=== PATIENT | male | born 1995 | race Caucasian/White ===

== ENCOUNTER 2016-05-18 08:06 | Inpatient (IN) | payer MEDICAID ==
[2016-05-18] MEDS ORDERED: LORazepam INJ* 2 MG/ML 1 ML VIAL ONE (08:56)
[2016-05-18] MEDS ORDERED: diPHENhydraMINE IV* 50 MG/ML 1 ml VIAL (BENADRYL) ONE (08:57)
[2016-05-18] MEDS ORDERED: Haloperidol INJ IV/IM* 5 MG/ML AMP ONE (08:57)
[2016-05-18] MEDS ORDERED: LORazepam INJ* 2 MG/ML 1 ML VIAL IM ONE (09:08)
[2016-05-18] MEDS ORDERED: diPHENhydraMINE IV* 50 MG/ML 1 ml VIAL (BENADRYL) IM ONE (09:08)
[2016-05-18] MEDS ORDERED: Haloperidol INJ IV/IM* 5 MG/ML AMP IM ONE (09:08)
[2016-05-18] MEDS ORDERED: LORazepam INJ* 2 MG/ML 1 ML VIAL IV PUSH ONE (10:23)
[2016-05-18 11:54] LABS: Hematocrit 47 % (42-52); Hemoglobin 15.1 g/dl (14.0-18.0); Mean Corpuscular HGB Conc 32 g/dl (31-36); Mean Corpuscular Hemoglobin 28 pg (27-31); Mean Corpuscular Volume 88 fL (80-94); Mean Platelet Volume 8 um3 (7.4-10.4); Red Blood Count 5.32 10^6/ul (4.0-5.4); Red Cell Distribution Width 13 % (10.5-15); White Blood Count 11.4 10^3/ul (3.5-10.8)
[2016-05-18 12:21] LABS: ALT 38 U/L (7-52); AST 30 U/L (13-39); Albumin 4.5 g/dL (3.2-5.2); Alkaline Phosphatase 61 U/L (34-104); Anion Gap 10 mmol/L (2-11); BUN/Creatinine Ratio 8.9 (8-20); Blood Urea Nitrogen 7 mg/dL (6-24); CO2 Carbon Dioxide 23 mmol/L (22-32); Calcium 9.9 mg/dL (8.6-10.3); Chloride 103 mmol/L (101-111); EGFR African American 159.2 (>60); EGFR Non-African American 123.8 (>60); Globulin 3.2 g/dL (2-4); Glucose 84 mg/dL (70-100); Potassium 3.8 mmol/L (3.5-5.0); Sodium 136 mmol/L (133-145); Total Protein 7.7 g/dL (6.4-8.9)
[2016-05-18 12:27] LABS: Acetaminophen < 15 mcg/mL; Alcohol < 10 mg/dL (<10); Salicylate < 2.50 mg/dL (<30)
[2016-05-18 12:37] LABS: TSH (Thyroid Stimulating Horm) 4.21 mcIU/mL (0.34-5.60)
--- NOTE | 2016-05-18 14:15 | PN ---
Progress Note - Progress Note Note: Psychiatry (read with reference to note by psychiatric nurse Librado Bernard) Binh oHgan is a 20 year old male who comes to the ED with report of behavioral changes since changing his anticonvulsant from Depakote (which can have beneficial mood effects) to Keppra (known to cause adverse effect of irritability). He has reportedly been unsafe and aggressive at home and needs to be held in a supportive and safe environment. In the ED he required emergency tranquilizing medication but no restraints. He is apparently non verbal. I discussed case with (ED) and Teofilo (hospitalist). I observed the patient sleeping, apparently sedated after med. administration. Patient is unable to participate in routine inpatient psychiatric programming and needs coordinated intervention from psychiatry and neurology. Behaviorally he could require restraints, these are not available on our psychiatry unit. Seclusion is but is contra-indicated as a patient with intellectual disability. Hospital care needs to be in an alternative setting - With the doctors I have recommended medical admission with consultation from neuro, psychiatry. Recommendations: A. Psychiatric medication management: 1. Abilify: I ordered 5mg dose for today. This is a low dose and ordered an increase to 10mg for Saturday, subsequently would titrate it higher. 2. Geodon: I continued outpatient dose of 20mg BID - this is also a low dose and overall, I am skeptical of the efficacy of the Abilify/Geodon combo at the lose doses reported. 3. For emergency stat treatment of violence, Haldol 5m/Ativan 2m with optional Benadryl 50mg is reasonable on a short term basis. For ongoing management beyond 24 hours if emergency meds are still needed , I would consider using Thorazine, PO (100-200mg orally) or IM (50-100mg) with Ativan PO/IM optionally; with the option to use Thorazine as an ongoing standing medication. B. Neurology intervention Dr. Manuel, the patient's neurologist, was open to the idea of taking patient off Keppra but recommended [facility] neurologist, Dr. Shah give an opinion on it. Apparently patient was on Depakote but getting blood samples to check levels was impractical or impossible. Dr. Roberto's consideration for a replacement for Keppra would be a long acting Benzodiazapine such as Clonazepam dosed twice daily, decreasing the Keppra over a period of a couple days. C. Followup - psychiatry to follow over the weekend - will hand over to Dr. Bran - I recommend neurology consultation and Social Work consultation to assist in planning aftercare Reviewed recommendations with and Teofilo
[2016-05-18] MEDS ORDERED: Haloperidol INJ IV/IM* 5 MG/ML AMP IM PRN (14:44)
[2016-05-18] MEDS ORDERED: LORazepam INJ* 2 MG/ML 1 ML VIAL IM PRN (14:45)
--- NOTE | 2016-05-18 14:55 | ED ---
[employer] Sanchez Billy scribed for Naeem Rojas MD on 05/18/16 at 0931 . Psychiatric Complaint - HPI Summary HPI Summary: Patient is a 20 year-old male with a history of autism brought to [facility] for MHE. Patient is non-verbal at baseline; as such, history was not obtained from the patient. However, his parents reported to police that the patient has been very agitated, aggressive, and violent towards himself and to others. He was seen playing with knives today, which prompted the parents to call 911 for concerns that the patient was in danger to himself and others. - History Of Current Complaint Chief Complaint: EDMentalHealth Time Seen by Provider: 05/18/16 08:10 Hx Obtained From: Family/[facility], EMS Hx From Patient Unobtainable Due To: Other - nonverbal at baseline Onset/Duration: Gradual Onset Timing: Constant Severity Initially: Moderate Severity Currently: Moderate Aggravating Factor(s): Other - unknown Alleviating Factor(s): Other - unknown Associated Signs And Symptoms: Positive: Hostile - behavior changes, aggressive Related History: Positive For: Prior Psychiatric Issues - Allergies/Home Medications Allergies/Adverse Reactions: Allergies Allergy/AdvReac Type Severity Reaction Status Date / Time No Known Allergies Allergy Verified 05/18/16 11:21 Home Medications: Home Medications ARIPiprazole TAB* [Abilify TAB*] 5 mg PO DAILY 05/18/16 [History Confirmed 12/25] Ziprasidone CAP* [Geodon CAP*] 20 mg PO BID 05/18/16 [History Confirmed 05/18/16 ] levETIRAcetam TAB* [Keppra TAB*] 500 mg PO BID 05/18/16 [History Confirmed 05/18] PMH/Surg Hx/FS Hx/Imm Hx Cardiovascular History: Denies: Hx Myocardial Infarction Neurological History: Reports: Hx Seizures Psychiatric History: Reports: Hx Autism Infectious Disease History: Denies: Traveled Outside the [place] in Last 30 Days - Family History Known Family History: Positive: Unknown - Not obtained from the patient; he is nonverbal at baseline. Review of Systems Neurological: Other - See HPI Psychological: Other - See HPI All Other Systems Reviewed And Are Negative: No - Comments Additional Review of Systems Comments: Full ROS not obtained from the patient, level 5 caveat. Physical Exam - Summary Physical Exam Summary: The patient is well-nourished in no acute distress and in no acute pain. The skin is warm and dry and skin color reflects adequate perfusion. HEENT: The head is normocephalic and atraumatic. The pupils are equal and reactive. The conjunctivae are clear and without drainage. Nares are patent and without drainage. Mouth reveals moist mucous membranes and the throat is without erythema and exudate. The external ears are intact. The ear canals are patent and without drainage. The tympanic membranes are intact. Neck is supple with full range of motion and non-tender. There are no carotid bruits. There is no neck vein distension. Respiratory: Chest is non-tender. Lungs are clear to auscultation and breath sounds are symmetrical and equal. Cardiovascular: Heart is regular rate and rhythm. There is no murmur or rub auscultated. There is no peripheral edema and pulses are symmetrical and equal. Abdomen: The abdomen is soft and non-tender. There are normal bowel sounds heard in all four quadrants and there is no organomegaly palpated. Musculoskeletal: There is no back pain noted. Extremities are non-tender with full range of motion. There is good capillary refill. There is no peripheral edema or calf tenderness elicited. Neurological: Patient is alert but not oriented. No focal neurological deficits. The patient has symmetrical motor strength in all four extremities. Psychiatric: Patient is non-verbal at baseline. Triage Information Reviewed: Yes Vital Signs On Initial Exam: Initial Vitals Resp 18 05/18/16 09:09 Vital Signs Reviewed: Yes Diagnostics - Vital Signs Vital Signs Resp 05/18/16 09:09 18 - Laboratory Lab Results: Lab Results 05/18/16 05/18/16 Range/Units 11:30 11:30 WBC 11.4 H (3.5-10.8) 10^3/ul RBC 5.32 (4.0-5.4) 10^6/ul Hgb 15.1 (14.0-18.0) g/dl Hct 47 (42-52) % MCV 88 (80-94) fL MCH 28 (27-31) pg MCHC 32 (31-36) g/dl RDW 13 (10.5-15) % Plt Count 271 (150-450) 10^3/ul MPV 8 (7.4-10.4) um3 Neut % (Auto) 70.8 (38-83) % Lymph % (Auto) 22.4 L (25-47) % Juncos % (Auto) 5.7 (1-9) % Eos % (Auto) 0.3 (0-6) % Baso % (Auto) 0.8 (0-2) % Absolute Neuts (auto) 8.1 H (1.5-7.7) 10^3/ul Absolute Lymphs (auto) 2.6 (1.0-4.8) 10^3/ul Absolute Monos (auto) 0.7 (0-0.8) 10^3/ul Absolute Eos (auto) 0 (0-0.6) 10^3/ul Absolute Basos (auto) 0.1 (0-0.2) 10^3/ul Absolute Nucleated RBC 0.01 10^3/ul Nucleated RBC % 0.1 Sodium 136 (133-145) mmol/L Potassium 3.8 (3.5-5.0) mmol/L Chloride 103 (101-111) mmol/L Carbon Dioxide 23 (22-32) mmol/L Anion Gap 10 (2-11) mmol/L BUN 7 (6-24) mg/dL Creatinine 0.79 (0.67-1.17) mg/dL Est GFR ( Amer) 159.2 (>60) Est GFR (Non-Af Amer) 123.8 (>60) BUN/Creatinine Ratio 8.9 (8-20) Glucose 84 (70-100) mg/dL Calcium 9.9 (8.6-10.3) mg/dL Total Bilirubin 1.40 H (0.2-1.0) mg/dL AST 30 (13-39) U/L ALT 38 (7-52) U/L Alkaline Phosphatase 61 (34-104) U/L Total Protein 7.7 (6.4-8.9) g/dL Albumin 4.5 (3.2-5.2) g/dL Globulin 3.2 (2-4) g/dL Albumin/Globulin Ratio 1.4 (1-3) TSH 4.21 (0.34-5.60) mcIU/mL Salicylates < 2.50 (<30) mg/dL Acetaminophen < 15 mcg/mL Serum Alcohol < 10 (<10) mg/dL Result Diagrams: 05/18/16 11:30 05/18/16 11:30 Lab Statement: Any lab studies that have been ordered have been reviewed, and results considered in the medical decision making process. Course/Dx - Course Assessment/Plan: Patient is a 20 year-old male with a history of autism brought to [facility] for MHE. Patient is non-verbal at baseline; as such, history was not obtained from the patient. However, his parents reported to police that the patient has been very agitated, aggressive, and violent towards himself and to others. He was seen playing with knives today, which prompted the parents to call 911 for concerns that the patient was in danger to himself and others. Bloodwork WNL except for WBC of 11.4 and total bilirubin 1.40. The patient was seen and examined by Dr. Posadas, who recommends that the patient be admitted to the medical team, and that he will continue to consult for the patient. The theory is that the change in behavior and aggression could be related to Keppra that he was started on in March for control of his seizures. Dr. Posadas spoke with Dr. Red and they agree to admit the patient to the medical team for further workup and management. They will also request neurological consult. At this point, the patient is resting comfortably after being sedated with B-52 and an additional 2 mg of Ativan. He is hemodynamically stable, alert, but not verbal. - Differential Dx/Clinical Impression Provider Diagnosis: Behavior concern, Agitation, Violent behavior - Physician Notifications Discussed Care Of Patient With: Dr. Posadas (psychiatry) @ 1230: recommends admission to medical team. Dr. Red (hospitalist) @ 1305: accepts admission. Discharge - Discharge Plan Condition: Stable Disposition: ADMITTED TO [facility] Referrals: Crescencio Ybarra MD [Primary Care Provider] - The documentation as recorded by the [employer] stafford Billy accurately reflects the service I personally performed and the decisions made by me, Naeem Rojas MD.
[2016-05-18] MEDS ORDERED: ARIPiprazole TAB* 5 MG PO SCH (15:00)
[2016-05-18] MEDS: Lacosamide TAB* 50 MG TAB PO SCH (20:40)
[2016-05-18] MEDS: Ziprasidone * 20 MG CAP (generic Geodon) PO SCH (20:41)
[2016-05-18] MEDS: levETIRAcetam TAB* 500 MG PO SCH (20:42)
[2016-05-18] MEDS ORDERED: levETIRAcetam TAB* 500 MG PO SCH (21:00)
--- NOTE | 2016-05-18 22:24 | HP ---
HOSPITAL MEDICINE HISTORY AND PHYSICAL: DATE OF ADMISSION: 05/18/16 PRIMARY CARE PHYSICIAN: Dr. Ybarra. ATTENDING PHYSICIAN: Dr. Ean Red *(dictation provided by Gonzalo Dubois NP ) CHIEF COMPLAINT: Agitation and unsafe behavior. HISTORY OF PRESENT ILLNESS: Mr. York is a 20-year-old male with a past medical history of autism, who is nonverbal. He also has a history of seizure disorder. He has recently had changes to his seizure medication from divalproex to Keppra. His family state that since the change that he has been more agitated and controlling in his behaviors. They note that he has been playing with knives. He has been aggressive with his family and they have been looking to arrange for greater support and a new home for the patient in an appropriate facility. The patient became agitated today and the family were fearful for their safety; they decided to bring him in to the emergency room for assistance. In the emergency room, Mr. York is nonverbal, which is his baseline. He has received Haldol and Ativan and is sitting up in the chair peacefully for the most part. There is no report of any other acute concerns. PAST MEDICAL HISTORY: 1. Autism. 2. Seizure disorder. MEDICATIONS: Outpatient are: 1. Keppra 500 mg p.o. b.i.d. 2. Abilify 5 mg p.o. daily. 3. Geodon 20 mg p.o. b.i.d. ALLERGIES: No known drug allergies. FAMILY HISTORY: Unobtainable as the family is not at the bedside. SOCIAL HISTORY: Unobtainable as the family is not at the bedside. The patient is nonverbal. REVIEW OF SYSTEMS: Unobtainable. PHYSICAL EXAMINATION GENERAL: Ms. York is sitting up in the chair. He is in no acute distress. He is calm and cooperative with my examination. VITAL SIGNS: Temperature 98.6, pulse rate 97, respiratory rate 17, O2 saturation 98% on room air, blood pressure 122/73. LUNGS: Clear to auscultation bilaterally. HEART: S1, S2. No murmurs, rubs or gallops. ABDOMEN: Soft, nontender. EXTREMITIES: No cyanosis or edema. SKIN: Intact. NEUROLOGIC: He is alert. He moves all extremities equally. He is nonverbal. LABORATORY DATA: WBC 11.4, hemoglobin 15.1, hematocrit 47, platelet count 271. Sodium 136, potassium 3.8, chloride 103, serum bicarbonate 23, BUN 7, creatinine 0.79, glucose 84. ASSESSMENT: Mr. York is a 20-year-old male with a past medical history of autism and seizure disorder who presents today at the hospital today due to unsafe agitated behavior with his family. Plans are for admission to the hospital for the following with inpatient status as I expect his length of stay to be greater than 2 days. Plan is as follows: 1. Agitated behavior. I appreciate the support from Dr. Posadas, who is providing consultation. Recommendations are the patient can increase his Abilify from 5 to 10 mg with possible subsequent higher titration. The patient is recommended to continue on his home outpatient Geodon. Finally recommendation is that the patient is agitated, he can have Haldol and Ativan intramuscularly but that Thorazine should be used assisted IM as needed if the patient continues to be agitated. In addition, the mental health evaluation spoke directly with the patient's neurologist, Dr. Manuel, who is deferring the change of seizure medication to inpatient Neurology. I plan to contact Dr. Bustos, but I have not been able to reach him yet for his recommendations. Dr. Manuel suggest that he could wean the patient off of Keppra using b.i.d. dosing of clonazepam. 2. Disposition: The patient is being followed closely by a social work and other staff in the hospital and arrangements will be made for discharge once the patient's mood and behaviors are stabilized. 3. Code status: Full code. TIME SPENT: Approximately 60 minutes were spent on the admission of this patient, more than half the time spent with him at the bedside reviewing the events leading up to this hospitalization, performing the physical examination, and reviewing the plan of care. GONZALO DUBOIS NP CC: Dr. Ybarra* [id number]/CPS #: [id number]
--- NOTE | 2016-05-19 02:07 | CONS ---
CC: Dr. Crescencio Ybarra; Dr. Izzy Manuel NEUROLOGY CONSULTATION: DATE OF CONSULT: 05/18/16 REQUESTING PHYSICIAN: Dr. Red. REASON FOR CONSULT: Recommendations for seizure medications. PRIMARY CARE PROVIDER: Dr. Crescencio Ybarra. NEUROLOGIST: Elizabeth Muñoz. HISTORY OF PRESENT ILLNESS: The patient is a 20-year-old male with history of autism who was brought to the hospital because of aggressive behavior and increased irritability. When I was asked for the consult in the afternoon, I went to the patient's room, I was able to examine the patient but no history could be obtained due to the patient being non-verbal and his parents were not around to obtain more information. I called the patient's parents and left a message and they called me back around 6 p.m. The history is obtained from my conversation with the patient's mother. Binh, as mentioned above, has history of autism; however, he was a calm and happy person with no behavioral problems until recently. About 4 years ago, some time in 2012, he started to have seizures described as episodes of staring off, followed by a generalized convulsion which usually lasted less than 1 minute and with some postictal confusion. The frequency of his seizures were initially around 1 seizure every few months. About late 2013 or early 2014 he was first started on Depakote for seizure control. His seizures did not respond very well to Depakote and he continued to have seizures every few months. Starting around August of 2015, while he was on Depakote, it was noted that the patient is more irritable than usual and change in his behavior was noted. His last seizure was in October 2015. Eventually in December, his Depakote was switched to levetiracetam in order to have less need for blood draw to monitor the level of antiepileptic medication and/or liver enzyme monitoring. In addition, the patient was on Risperdal since probably age 6-7, but it was recommended to be discontinued by his neurologist because of his history of seizures. Eventually, the Risperdal was discontinued in February 2016. Binh did not have any seizures while on levetiracetam. However, his behavior became even more aggressive and irritated since levetiracetam started. He eventually he was brought to the hospital today because of his behavior and for possibly placement in a facility. Binh, other than autism, has no other clear risk factor for epilepsy including no family history, no history of head trauma or history of meningitis , encephalitis, or febrile seizure. In terms of workup for epilepsy, per mother, he had only 1 EEG that seemingly was normal. He never had an imaging of the brain because it was hard to obtain that. Per his mother, it is extremely hard to get a blood draw from him and may be in his entire life he had not more than 2 blood draws and he needed to be sedated prior to that. PAST MEDICAL HISTORY: No significant past medical history other than autism and seizures that were mentioned above. PAST SURGICAL HISTORY: None. HOME MEDICATIONS: Include: 1. Abilify 5 mg p.o. daily. 2. Geodon 20 mg p.o. b.i.d. 3. Levetiracetam 500 mg p.o. b.i.d. ALLERGIES: No known drug allergies. FAMILY HISTORY: There is no history of seizure in the family. There is no other significant neurological disorder in the family. SOCIAL HISTORY: The patient currently lives at home and has a field services analyst. PHYSICAL EXAMINATION: Blood pressure 138/74, temperature 98.3, respiratory rate 20, pulse rate 129, O2 sat 97% on room air. The patient is calm at this point, but other than simple instructions, he does not cooperate with multistep commands so the exam is limited. He is nonverbal at his baseline. He seems in no acute distress now. Pupils are symmetric and reactive to light. He seems to be able to follow with his eyes in all directions with no clear nystagmus in lateral gaze. Face is symmetric. He is moving all his extremities, but as mentioned there is no clear cooperation from his side to complete a detailed neurological exam. His gait is narrow based and steady. Today, his labs showed a WBC of 11.4, hemoglobin 15.1, hematocrit 47, platelets 271. Sodium 136, potassium 3.8, BUN 7, creatinine 0.79, AST 30, ALT 38, alkaline phosphatase 61. TSH 4.21. Toxicology is negative. ASSESSMENT AND PLAN: The patient is a 20-year-old male with history of seizure and autism. He has been on Depakote in the past and now on levetiracetam since December or January 2016. Seems like the behavioral problems started back in August of 2015 while he was still on Depakote; however, his aggressiveness escalated after switching his seizure medication to levetiracetam. In addition, he was taken off Risperdal in February 2016. Therefore, although I think levetiracetam is a significant contributor to the patient's behavioral change, I am not sure if it is the only cause. Depakote, in general, is a mood stabilizer but there is a small percentage of patients who exhibit a paradoxical aggressive behavior on that medication. Whether the start of change in his behavior back in August 2015 was related to Depakote that escalated after switching to levetiracetam in December, is a possibility. I had a prolonged conversation (>45 minutes) with the patient's mother today regarding his medication management. At this point, I think that the levetiracetam definitely needs to be changed to another seizure medication because of his aggressiveness, which is a well-known side effect of levetiracetam. We talked about alternative options and reviewed the side effects of specifically 3 antiepileptic medications, i.e. lamotrigine, oxcarbazepine and Vimpat. The caveat is that the patient does not allow blood draws and therefore medications that are metabolized by the liver such as lamotrigine or oxcarbazepine which need a periodic check of the antiepileptic level as well as liver function or CBC will be challenging. In terms of mood stabilization, lamotrigine will be a better option, but the titration of that medication should be slow, and again blood draws will be challenging. Eventually, after taking everything into consideration, decided that Vimpat might be a better choice since it needs less monitoring of level of medication and does not need monitoring of the liver enzymes or CBC. I recommended to decrease his levetiracetam to 250 mg b.i.d., starting tonight, while starting him on Vimpat 25 mg b.i.d. for 3 days, then 50 mg b.i.d. for 1 week, then 100 mg b.i.d. for 1 week, and then 150 mg b.i.d. levetiracetam can be discontinued when he reaches the dose of 100 mg b.i.d. of Vimpat. This titration plan can be further assessed and adjusted by his primary neurologist based on the clinical response. If possible, obtaining a level after he reaches to the goal dose of Vimpat will be helpful and after that probably does not need frequent monitoring. Potential side effects such as drowsiness, dizziness, double vision was discussed. Vimpat can also cause irritability, but the rate of that is extremely low. In terms of workup, Binh needs an imaging of his brain as this was never done before. At least a CT head or preferably an MRI. However, this needs to be done probably under general anesthesia and can be pursued by his regular neurologist , hopefully at a time that his behavior is under better control. [id number]/CPS #: [id number] MTDD
[2016-05-19] MEDS: Ziprasidone * 20 MG CAP (generic Geodon) PO SCH ×2 (09:01→20:21)
[2016-05-19] MEDS: Lacosamide TAB* 50 MG TAB PO SCH ×2 (09:01→20:21)
[2016-05-19] MEDS: ARIPiprazole TAB* 5 MG PO SCH (09:01)
[2016-05-19] MEDS: levETIRAcetam TAB* 500 MG PO SCH ×2 (09:01→20:21)
--- NOTE | 2016-05-19 12:04 | PN ---
Progress Note - Progress Note SOAP: Neurology progress note Date of service 05/19/16 Subjective: No acute events overnight. The patient has been calm and no report of aggressive behavior since admission. His levetiracetam dose was decreased to 250 mg bid and Vimpat started at 25 mg bid. Objective: Vital Signs Temp Pulse Resp BP Pulse Ox 98.3 F 104 16 120/74 98 05/18/16 16:22 05/19/16 08:07 05/19/16 08:07 05/19/16 08:07 05/19/16 08:07 Current Medications Aripiprazole (Abilify Tab*) 10 mg PO DAILY [facility] Last Admin: 05/19/16 09:01 Dose: 10 mg Lacosamide (Vimpat Tab*) 25 mg PO BID [facility] Last Admin: 05/19/16 09:01 Dose: 25 mg Levetiracetam (Keppra Tab*) 250 mg PO BID [facility] Last Admin: 05/19/16 09:01 Dose: 250 mg Ziprasidone (Geodon (Generic) *) 20 mg PO BID [facility] Last Admin: 05/19/16 09:01 Dose: 20 mg No new labs The patient is currently sleeping, and due to the history of his behavior, I did not wake him up. There has been no report of clear change in his gross physical mobility. ASSESSMENT AND PLAN: The patient is a 20-year-old male with history of seizure and autism admitted for worsening of his behavior and aggressiveness. Please refer to the original consult note for the detailed discussion regarding management of his AEDs. Continue on levetiracetam to 250 mg b.i.d. and continue on Vimpat 25 mg b.i.d. for 3 days, then 50 mg b.i.d. for 1 week, then 100 mg b.i.d. for 1 week, and then 150 mg b.i.d. Levetiracetam can be discontinued when he reaches the dose of 100 mg b.i.d. of Vimpat. This titration plan can be further assessed and adjusted by his primary neurologist based on the clinical response. If possible , obtaining a level after he reaches to the goal dose of Vimpat will be helpful and after that probably does not need frequent monitoring. In terms of workup, Binh needs an imaging of his brain as this was never done before. At least a CT head or preferably an MRI. However, this needs to be done probably under general anesthesia and can be pursued by his regular neurologist, hopefully at a time that his behavior is under better control.
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
[2016-05-19] MEDS ORDERED: Haloperidol INJ IV/IM* 5 MG/ML AMP IM PRN (15:18)
[2016-05-19] MEDS ORDERED: LORazepam TAB(*) 1 MG ONE (15:25)
[2016-05-19] MEDS: LORazepam TAB(*) 1 MG PO PRN (15:26)
[2016-05-19] MEDS: Haloperidol TAB* 5 MG PO PRN (15:37)
--- NOTE | 2016-05-19 17:34 | PN ---
Subjective Date of Service: 05/19/16 Interval History: Patient non verbal but not violent with me. Objective Active Medications: Aripiprazole (Abilify Tab*) 10 mg PO DAILY [facility] Last Admin: 05/19/16 09:01 Dose: 10 mg Haloperidol (Haldol Tab*) 5 mg PO Q6H PRN PRN Reason: AGITATION Last Admin: 05/19/16 15:37 Dose: 5 mg Haloperidol Lactate (Haldol Inj Iv/Im*) 5 mg IM Q6H PRN PRN Reason: AGITATION Lacosamide (Vimpat Tab*) 25 mg PO BID [facility] Last Admin: 05/19/16 09:01 Dose: 25 mg Levetiracetam (Keppra Tab*) 250 mg PO BID [facility] Last Admin: 05/19/16 09:01 Dose: 250 mg Lorazepam (Ativan Tab(*)) 1 mg PO Q4H PRN PRN Reason: Anxiety/Agitation Last Admin: 05/19/16 15:26 Dose: 1 mg Ziprasidone (Geodon (Generic) *) 20 mg PO BID [facility] Last Admin: 05/19/16 09:01 Dose: 20 mg Vital Signs 05/18/16 05/18/16 05/19/16 18:34 20:00 08:00 Pulse Rate Respiratory 18 18 18 Rate Blood Pressure (mmHg) O2 Sat by Pulse Oximetry 05/19/16 05/19/16 08:07 15:26 Pulse Rate 104 Respiratory 16 18 Rate Blood Pressure 120/74 (mmHg) O2 Sat by Pulse 98 Oximetry Oxygen Devices in Use Now: None Appearance: WD/WN young man walking but in NAD Eyes: No Scleral Icterus Ears/Nose/Mouth/Throat: Clear Oropharnyx Neck: No Thyroid Enlargement, Masses Respiratory: Clear to Auscultation Cardiovascular: - - S1S2 alondra Abdominal: NL Sounds; No Tenderness; No Distention, No Hepatosplenomegaly Lymphatic: No Cervical Adenopathy Extremities: No Edema, No Clubbing, Cyanosis Skin: No Nodules or Sclerosis Neurological: - - Alert but cannot tell if oriented. Result Diagrams: 05/18/16 11:30 05/18/16 11:30 Additional Lab and Data: Lab Results 05/18/16 05/18/16 Range/Units 11:30 11:30 WBC 11.4 H (3.5-10.8) 10^3/ul RBC 5.32 (4.0-5.4) 10^6/ul Hgb 15.1 (14.0-18.0) g/dl Hct 47 (42-52) % MCV 88 (80-94) fL MCH 28 (27-31) pg MCHC 32 (31-36) g/dl RDW 13 (10.5-15) % Plt Count 271 (150-450) 10^3/ul MPV 8 (7.4-10.4) um3 Neut % (Auto) 70.8 (38-83) % Lymph % (Auto) 22.4 L (25-47) % [place] % (Auto) 5.7 (1-9) % Eos % (Auto) 0.3 (0-6) % Baso % (Auto) 0.8 (0-2) % Absolute Neuts (auto) 8.1 H (1.5-7.7) 10^3/ul Absolute Lymphs (auto) 2.6 (1.0-4.8) 10^3/ul Absolute Monos (auto) 0.7 (0-0.8) 10^3/ul Absolute Eos (auto) 0 (0-0.6) 10^3/ul Absolute Basos (auto) 0.1 (0-0.2) 10^3/ul Absolute Nucleated RBC 0.01 10^3/ul Nucleated RBC % 0.1 Sodium 136 (133-145) mmol/L Potassium 3.8 (3.5-5.0) mmol/L Chloride 103 (101-111) mmol/L Carbon Dioxide 23 (22-32) mmol/L Anion Gap 10 (2-11) mmol/L BUN 7 (6-24) mg/dL Creatinine 0.79 (0.67-1.17) mg/dL Est GFR ( Amer) 159.2 (>60) Est GFR (Non-Af Amer) 123.8 (>60) BUN/Creatinine Ratio 8.9 (8-20) Glucose 84 (70-100) mg/dL Calcium 9.9 (8.6-10.3) mg/dL Total Bilirubin 1.40 H (0.2-1.0) mg/dL AST 30 (13-39) U/L ALT 38 (7-52) U/L Alkaline Phosphatase 61 (34-104) U/L Total Protein 7.7 (6.4-8.9) g/dL Albumin 4.5 (3.2-5.2) g/dL Globulin 3.2 (2-4) g/dL Albumin/Globulin Ratio 1.4 (1-3) TSH 4.21 (0.34-5.60) mcIU/mL Salicylates < 2.50 (<30) mg/dL Acetaminophen < 15 mcg/mL Serum Alcohol < 10 (<10) mg/dL Assess/Plan/Problems-Billing Assessment: Patient is a 20 year old with a history of seizure and autism who has been displaying more violent behavior since being placed on Keppra, - Patient Problems (1) Seizure disorder Current Visit: Yes Status: Acute Code(s): G40.909 - EPILEPSY, UNSP, NOT INTRACTABLE, WITHOUT STATUS EPILEPTICUS SNOMED Code(s): 878596799 Comment: Appreciate neurology's input and patient to be weened off Keppra and placed on Vimpat. Not clear if violent tendencies and agitation necessarily coincided with the initiation of Keppra but it is known to be a side effect of this medication. (2) Autism Current Visit: Yes Status: Acute Code(s): F84.0 - AUTISTIC DISORDER SNOMED Code(s): 631996493 Comment: Appreciate Psychiatry's input and have adjusted his abilify and will use Haldol, Ativan prn. (3) Full code status Current Visit: Yes Status: Acute Code(s): Z78.9 - OTHER SPECIFIED HEALTH STATUS SNOMED Code(s): 389437386
[2016-05-20] MEDS: Haloperidol TAB* 5 MG PO PRN ×2 (06:52→15:16)
[2016-05-20] MEDS: Lacosamide TAB* 50 MG TAB PO SCH ×2 (08:08→21:06)
[2016-05-20] MEDS: ARIPiprazole TAB* 5 MG PO SCH (08:08)
[2016-05-20] MEDS: levETIRAcetam TAB* 500 MG PO SCH ×2 (08:09→21:06)
[2016-05-20] MEDS: Ziprasidone * 20 MG CAP (generic Geodon) PO SCH ×2 (08:09→21:06)
[2016-05-20] MEDS: LORazepam TAB(*) 1 MG PO PRN ×2 (15:11→21:06)
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
[2016-05-21] MEDS: ARIPiprazole TAB* 5 MG PO SCH (09:12)
[2016-05-21] MEDS: Lacosamide TAB* 50 MG TAB PO SCH ×2 (09:12→19:35)
[2016-05-21] MEDS: levETIRAcetam TAB* 500 MG PO SCH ×2 (09:13→19:34)
[2016-05-21] MEDS: Ziprasidone * 20 MG CAP (generic Geodon) PO SCH ×2 (09:13→19:35)
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
[2016-05-21] MEDS: Haloperidol TAB* 5 MG PO PRN (18:34)
[2016-05-21] MEDS: LORazepam TAB(*) 1 MG PO PRN (19:01)
[2016-05-22] MEDS: Haloperidol TAB* 5 MG PO PRN ×2 (07:08→17:19)
[2016-05-22] MEDS: ARIPiprazole TAB* 5 MG PO SCH (08:33)
[2016-05-22] MEDS: Ziprasidone * 20 MG CAP (generic Geodon) PO SCH ×2 (08:34→21:06)
[2016-05-22] MEDS: levETIRAcetam TAB* 500 MG PO SCH ×2 (08:34→21:06)
[2016-05-22] MEDS: Lacosamide TAB* 50 MG TAB PO SCH ×2 (08:34→21:13)
[2016-05-22] MEDS: LORazepam TAB(*) 1 MG PO PRN ×2 (09:26→18:41)
--- NOTE | 2016-05-22 15:17 | PN ---
Subjective Date of Service: 05/22/16 Interval History: pt appears to be much calmer in the past 24H. Currently not interested win talking with me. no complaints Objective Active Medications: Aripiprazole (Abilify Tab*) 10 mg PO DAILY [facility] Last Admin: 05/22/16 08:33 Dose: 10 mg Haloperidol (Haldol Tab*) 5 mg PO Q6H PRN PRN Reason: AGITATION Last Admin: 05/22/16 07:08 Dose: 5 mg Haloperidol Lactate (Haldol Inj Iv/Im*) 5 mg IM Q6H PRN PRN Reason: AGITATION Lacosamide (Vimpat Tab*) 50 mg PO BID [facility] Last Admin: 05/22/16 08:34 Dose: 50 mg Levetiracetam (Keppra Tab*) 250 mg PO BID [facility] Last Admin: 05/22/16 08:34 Dose: 250 mg Lorazepam (Ativan Tab(*)) 1 mg PO Q4H PRN PRN Reason: Anxiety/Agitation Last Admin: 05/22/16 09:26 Dose: 1 mg Ziprasidone (Geodon (Generic) *) 20 mg PO BID [facility] Last Admin: 05/22/16 08:34 Dose: 20 mg Vital Signs 05/21/16 05/21/16 05/21/16 19:01 20:00 21:01 Respiratory 18 18 18 Rate 05/22/16 05/22/16 05/22/16 08:00 09:26 11:26 Respiratory 16 16 16 Rate Oxygen Devices in Use Now: None Appearance: 20 yo M, lying on bed in NAd, when asked if he wants to talk, he shook his head " no". Eyes: No Scleral Icterus, PERRLA Ears/Nose/Mouth/Throat: NL Teeth, Lips, Gums, Mucous Membranes Moist Neck: NL Appearance and Movements; NL JVP, Trachea Midline Respiratory: Symmetrical Chest Expansion and Respiratory Effort Cardiovascular: RRR Abdominal: NL Sounds; No Tenderness; No Distention Extremities: No Edema, No Clubbing, Cyanosis Neurological: NL Muscle Strength and Tone Result Diagrams: 05/18/16 11:30 05/18/16 11:30 Additional Lab and Data: Lab Results 05/18/16 05/18/16 Range/Units 11:30 11:30 WBC 11.4 H (3.5-10.8) 10^3/ul RBC 5.32 (4.0-5.4) 10^6/ul Hgb 15.1 (14.0-18.0) g/dl Hct 47 (42-52) % MCV 88 (80-94) fL MCH 28 (27-31) pg MCHC 32 (31-36) g/dl RDW 13 (10.5-15) % Plt Count 271 (150-450) 10^3/ul MPV 8 (7.4-10.4) um3 Neut % (Auto) 70.8 (38-83) % Lymph % (Auto) 22.4 L (25-47) % [place] % (Auto) 5.7 (1-9) % Eos % (Auto) 0.3 (0-6) % Baso % (Auto) 0.8 (0-2) % Absolute Neuts (auto) 8.1 H (1.5-7.7) 10^3/ul Absolute Lymphs (auto) 2.6 (1.0-4.8) 10^3/ul Absolute Monos (auto) 0.7 (0-0.8) 10^3/ul Absolute Eos (auto) 0 (0-0.6) 10^3/ul Absolute Basos (auto) 0.1 (0-0.2) 10^3/ul Absolute Nucleated RBC 0.01 10^3/ul Nucleated RBC % 0.1 Sodium 136 (133-145) mmol/L Potassium 3.8 (3.5-5.0) mmol/L Chloride 103 (101-111) mmol/L Carbon Dioxide 23 (22-32) mmol/L Anion Gap 10 (2-11) mmol/L BUN 7 (6-24) mg/dL Creatinine 0.79 (0.67-1.17) mg/dL Est GFR ( Amer) 159.2 (>60) Est GFR (Non-Af Amer) 123.8 (>60) BUN/Creatinine Ratio 8.9 (8-20) Glucose 84 (70-100) mg/dL Calcium 9.9 (8.6-10.3) mg/dL Total Bilirubin 1.40 H (0.2-1.0) mg/dL AST 30 (13-39) U/L ALT 38 (7-52) U/L Alkaline Phosphatase 61 (34-104) U/L Total Protein 7.7 (6.4-8.9) g/dL Albumin 4.5 (3.2-5.2) g/dL Globulin 3.2 (2-4) g/dL Albumin/Globulin Ratio 1.4 (1-3) TSH 4.21 (0.34-5.60) mcIU/mL Salicylates < 2.50 (<30) mg/dL Acetaminophen < 15 mcg/mL Serum Alcohol < 10 (<10) mg/dL Assess/Plan/Problems-Billing Assessment: Patient is a 20 year old with a history of seizure and autism who has been displaying more violent behavior since being placed on Keppra, - Patient Problems (1) Autism Comment: Appreciate Psychiatry's input bret bonilla and haldol prn appears close to his baseline. Possible d/c home tomorrow, (2) Seizure disorder Comment: Appreciate neurology's input and patient is being weaned off Keppra. cont Keppra at decreased dose Vimpat started and being titrated up to Vimpat 50 BID 05/22/16 for 1 week then follow titration schedule in neurology notes Suspect violent behavior changes in setting of keppra (3) DVT prophylaxis Comment: low risk ambulating (4) Full code status Status and Disposition: inpatient
[2016-05-23] MEDS: LORazepam TAB(*) 1 MG PO PRN ×2 (03:58→17:09)
[2016-05-23] MEDS: Haloperidol TAB* 5 MG PO PRN (03:58)
[2016-05-23] MEDS: levETIRAcetam TAB* 500 MG PO SCH ×2 (09:37→20:29)
[2016-05-23] MEDS: Lacosamide TAB* 50 MG TAB PO SCH ×2 (09:38→20:29)
[2016-05-23] MEDS: ARIPiprazole TAB* 5 MG PO SCH (09:38)
[2016-05-23] MEDS: Ziprasidone * 20 MG CAP (generic Geodon) PO SCH ×2 (09:39→20:29)
--- NOTE | 2016-05-23 19:33 | PN ---
Progress Note - Progress Note Note: Time spent on discharge 45 minutes.
--- NOTE | 2016-05-23 21:20 | DCNOTE ---
Subjective Date of Service: 05/23/16 Interval History: Patient offers no c/o. Not clear if he could make his needs known. Objective Active Medications: Aripiprazole (Abilify Tab*) 10 mg PO DAILY [facility] Last Admin: 05/23/16 09:38 Dose: 10 mg Haloperidol (Haldol Tab*) 5 mg PO Q6H PRN PRN Reason: AGITATION Last Admin: 05/23/16 03:58 Dose: 5 mg Haloperidol Lactate (Haldol Inj Iv/Im*) 5 mg IM Q6H PRN PRN Reason: AGITATION Lacosamide (Vimpat Tab*) 50 mg PO BID [facility] Last Admin: 05/23/16 20:29 Dose: 50 mg Levetiracetam (Keppra Tab*) 250 mg PO BID [facility] Last Admin: 05/23/16 20:29 Dose: 250 mg Lorazepam (Ativan Tab(*)) 1 mg PO Q4H PRN PRN Reason: Anxiety/Agitation Last Admin: 05/23/16 17:09 Dose: 1 mg Ziprasidone (Geodon (Generic) *) 20 mg PO BID [facility] Last Admin: 05/23/16 20:29 Dose: 20 mg Vital Signs 05/22/16 05/23/16 05/23/16 23:51 03:58 05:58 Pulse Rate 113 Respiratory 20 20 Rate Blood Pressure 131/65 (mmHg) O2 Sat by Pulse 96 Oximetry 05/23/16 05/23/16 05/23/16 07:51 08:00 15:18 Pulse Rate 123 145 Respiratory 18 16 Rate Blood Pressure 140/67 131/71 (mmHg) O2 Sat by Pulse 96 97 Oximetry 05/23/16 05/23/16 05/23/16 15:30 17:09 19:09 Pulse Rate 111 Respiratory 16 16 Rate Blood Pressure (mmHg) O2 Sat by Pulse Oximetry Oxygen Devices in Use Now: None Appearance: Alert, partly up in bed. In good spirits and sociable, offered to shake hands and high-five me. Looks comfortable. Eyes: No Scleral Icterus Neck: NL Appearance and Movements; NL JVP, No Thyroid Enlargement, Masses Respiratory: Symmetrical Chest Expansion and Respiratory Effort, Clear to Auscultation, Clear to Percussion Cardiovascular: NL Sounds; No Murmurs; No JVD, RRR, No Edema, - Skin: No Rash or Ulcers, No Nodules or Sclerosis, - Neurological: NL Sensation - Non-verbal. Good eye contact. No tremors. Moves all limbs. Result Diagrams: 05/18/16 11:30 05/18/16 11:30 Additional Lab and Data: Lab Results 05/18/16 05/18/16 Range/Units 11:30 11:30 WBC 11.4 H (3.5-10.8) 10^3/ul RBC 5.32 (4.0-5.4) 10^6/ul Hgb 15.1 (14.0-18.0) g/dl Hct 47 (42-52) % MCV 88 (80-94) fL MCH 28 (27-31) pg MCHC 32 (31-36) g/dl RDW 13 (10.5-15) % Plt Count 271 (150-450) 10^3/ul MPV 8 (7.4-10.4) um3 Neut % (Auto) 70.8 (38-83) % Lymph % (Auto) 22.4 L (25-47) % [place] % (Auto) 5.7 (1-9) % Eos % (Auto) 0.3 (0-6) % Baso % (Auto) 0.8 (0-2) % Absolute Neuts (auto) 8.1 H (1.5-7.7) 10^3/ul Absolute Lymphs (auto) 2.6 (1.0-4.8) 10^3/ul Absolute Monos (auto) 0.7 (0-0.8) 10^3/ul Absolute Eos (auto) 0 (0-0.6) 10^3/ul Absolute Basos (auto) 0.1 (0-0.2) 10^3/ul Absolute Nucleated RBC 0.01 10^3/ul Nucleated RBC % 0.1 Sodium 136 (133-145) mmol/L Potassium 3.8 (3.5-5.0) mmol/L Chloride 103 (101-111) mmol/L Carbon Dioxide 23 (22-32) mmol/L Anion Gap 10 (2-11) mmol/L BUN 7 (6-24) mg/dL Creatinine 0.79 (0.67-1.17) mg/dL Est GFR ( Amer) 159.2 (>60) Est GFR (Non-Af Amer) 123.8 (>60) BUN/Creatinine Ratio 8.9 (8-20) Glucose 84 (70-100) mg/dL Calcium 9.9 (8.6-10.3) mg/dL Total Bilirubin 1.40 H (0.2-1.0) mg/dL AST 30 (13-39) U/L ALT 38 (7-52) U/L Alkaline Phosphatase 61 (34-104) U/L Total Protein 7.7 (6.4-8.9) g/dL Albumin 4.5 (3.2-5.2) g/dL Globulin 3.2 (2-4) g/dL Albumin/Globulin Ratio 1.4 (1-3) TSH 4.21 (0.34-5.60) mcIU/mL Salicylates < 2.50 (<30) mg/dL Acetaminophen < 15 mcg/mL Serum Alcohol < 10 (<10) mg/dL Assess/Plan/Problems-Billing Assessment: Patient is a 20 year old with a history of seizure and autism who has been displaying more violent behavior since being placed on Keppra, - Patient Problems (1) Autism Current Visit: Yes Status: Acute Code(s): F84.0 - AUTISTIC DISORDER SNOMED Code(s): 977171598 Comment: Appreciate Psychiatry's input. Continue bret bonilla. Plan d/c home 05/24. I spoke with his mother on the phone about discharge plans and meds. (2) Seizure disorder Current Visit: Yes Status: Acute Code(s): G40.909 - EPILEPSY, UNSP, NOT INTRACTABLE, WITHOUT STATUS EPILEPTICUS SNOMED Code(s): 245347935 Comment: Appreciate neurology's input and patient is being weaned off Keppra. He seems to have improved with decrease in Keppra dose, last dose 05/28. Vimpat started and being titrated up to Vimpat 50 BID 05/22/16 for 1 week then follow titration schedule in neurology notes. Status and Disposition: inpatient Plan discharge 05/24/16. Fup Dr. Ybarra
[2016-05-24 07:57] VITALS: BP 102/61
[2016-05-24] MEDS: ARIPiprazole TAB* 5 MG PO SCH (08:21)
[2016-05-24] MEDS: Lacosamide TAB* 50 MG TAB PO SCH (08:22)
[2016-05-24] MEDS: Ziprasidone * 20 MG CAP (generic Geodon) PO SCH (08:22)
[2016-05-24] MEDS: levETIRAcetam TAB* 500 MG PO SCH (08:22)
--- NOTE | 2016-05-25 03:57 | DS ---
DATE OF DISCHARGE: 05/24/16 HISTORY: This 20-year-old man was admitted for agitation and unsafe behavior. He has a diagnosis of autism and is nonverbal as well as a seizure disorder. Recently, his seizure was changed from divalproex to levetiracetam. Since that change, he became more agitated and dangerous at home. His family called 911 to have the ambulance crew bring him to the emergency room. The patient was seen in consultation by the neurologist. He is being gradually switched from levetiracetam to lacosamide. During the hospital stay, his behavior improved significantly suggesting that the change was due to the levetiracetam. He also had aripiprazole added to his medical regimen which may provide additional benefit. FINAL DIAGNOSES: 1. Autism. 2. Seizure disorder. DISCHARGE MEDICATIONS: 1. Lacosamide to titrate up to 50 mg 3 tablets b.i.d., 11 days after discharge. 2. Aripiprazole 10 mg daily. 3. Levetiracetam will be 250 mg b.i.d. for 4 days only, then stop. 4. Haloperidol 5 mg b.i.d. p.r.n. agitation. 5. Ziprasidone 20 mg daily. [id number]/[facility] #: [id number] [facility] CENTERLucero
== END 2016-05-24 11:55 | disposition home or self-care (01) | DRG 760 ==
LOC: ED 08:06 → MED 13:26
PROVIDERS: ADMIT Internal Medicine; ATTEND Internal Medicine
DX: R45.1 Restlessness and agitation (principal); G40.909 Epilepsy, unspecified, not intractable, without status epilepticus; F84.0 Autistic disorder; T42.6X5A Adverse effect of other antiepileptic and sedative-hypnotic drugs, initial encounter; Y92.9 Unspecified place or not applicable; F89 Unspecified disorder of psychological development
CPT/HCPCS: 36415; 80053; 80320; 80329; 84443; 85025; A9270-GY; G0480; J1200; J1630; J2060

== ENCOUNTER 2016-06-06 16:53 | Emergency (ER) | payer MEDICAID ==
[2016-06-06 17:10] VITALS: BP 130/67
--- NOTE | 2016-06-06 18:00 | UC ---
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 Onset/Duration: Gradual Onset Skin Exposure Onset/Duration: Days Ago Timing: Constant Onset Severity: Mild Current Severity: Mild Pain Scale Used: does not appear to be in pain Location: Face - worse/also involves scalp and trunk Character: Pruritus, Raised Aggravating: Nothing Alleviating: Nothing Associated Signs & Symptoms: Positive: Fever, Rash - Allergy/Home Medications Allergies/Adverse Reactions: Allergies Allergy/AdvReac Type Severity Reaction Status Date / Time No Known Allergies Allergy Verified 06/06/16 17:10 Home Medications: Home Medications Acetaminophen 1,000 mg PO PRN 06/06/16 [History] Review of Systems Constitutional: Fever Skin: Rash Eyes: Negative ENT: Negative Respiratory: Negative Cardiovascular: Negative Gastrointestinal: Negative Genitourinary: Negative Motor: Negative Neurovascular: Negative Musculoskeletal: Negative Neurological: Negative Psychological: Negative All Other Systems Reviewed And Are Negative: Yes PMH/Surg Hx/FS Hx/Imm Hx Previously Healthy: Yes Cardiovascular History Of: Denies: Myocardial Infarction Neurological History Of: Reports: Seizures - Surgical History Surgical History: None - Family History Known Family History: Positive: Unknown - Not obtained from the patient; he is nonverbal at baseline., Hypertension - Social History Alcohol Use: None Substance Use Type: None Smoking Status (MU): Never Smoked Tobacco - Immunization History Most Recent Influenza Vaccination: unk Most Recent Tetanus Shot: unk Most Recent Pneumonia Vaccination: unk Physical Exam Triage Information Reviewed: Yes Appearance: Well-Appearing, No Pain Distress, Well-Nourished Vital Signs: Initial Vital Signs Temp 98.4 F 06/06/16 17:03 Pulse 108 06/06/16 17:03 Resp 20 06/06/16 17:03 BP 130/67 06/06/16 17:03 Pulse Ox 98 06/06/16 17:03 Vital Signs Reviewed: Yes Eyes: Positive: Conjunctiva Clear ENT: Positive: Hearing grossly normal, TMs normal. Negative: Nasal congestion, Nasal drainage Neck: Positive: Supple, Nontender, No Lymphadenopathy Respiratory: Positive: Chest non-tender, Lungs clear, Normal breath sounds Cardiovascular: Positive: RRR, No Murmur Musculoskeletal: Positive: ROM Intact, No Edema Neurological: Positive: Alert Psychological Exam: Normal - verbal, pacing, difficult exam, Other Skin: Positive: rashes, Other - vesicular/some scabbed Course/Dx - Course Course Of Treatment: Advise mom to contact his neurologist re rashes from his antiseizure med. attempted to swab a lesion/pt was not very cooperative, unsure if specimen was adequate - Diagnoses Provider Diagnoses: rash of uncertain cause. suspicious for chicken pox Discharge - Discharge Plan Condition: Stable Disposition: HOME Prescriptions: Acyclovir TAB* [Zovirax TAB*] 800 mg PO QID #40 tab Patient Education Materials: Chickenpox (ED) Referrals: Crescencio Ybarra MD [Primary Care Provider] - If Needed Additional Instructions: I suspect chicken pox I suggest you contact his MD in AM as I am not familiar with the possible drug eruptions from VIMPAT tylenol as needed for fever recheck for new or worsening symptoms
== END 2016-06-06 18:13 | disposition home or self-care (01) ==
LOC: UCEAST 16:53
DX: R21 Rash and other nonspecific skin eruption (principal); R50.9 Fever, unspecified
CPT/HCPCS: 99212; G0463

== ENCOUNTER 2016-12-14 05:54 | Day surgery (SDC) | payer MEDICAID ==
[~2016-12-14 05:54] MED LIST: Buffered Lidocaine 0.9% SYRIN* 5 ML/SYR SYRINGE ONE; Famotidine IV* 10 MG/ML 2 ML (20 mg) ONE
[2016-12-14] MEDS ORDERED: Midazolam* 1 MG/ML 5 ML VIAL (5 MG) PO ONE (06:06)
[2016-12-14] MEDS ORDERED: Acetaminophen ADULT LIQ* 650 MG/20.3 ML UDC PO ONE (06:06)
[2016-12-14] MEDS ORDERED: Acetaminophen ADULT LIQ* 650 MG/20.3 ML UDC ONE ×2 (06:09)
[2016-12-14] MEDS ORDERED: DiMENhydriNATE IV* 50 MG/ML VIAL IV PUSH PRN (06:09)
[2016-12-14] MEDS ORDERED: Midazolam concentrated* 5 MG/ML 1 ml VIAL ONE ×2 (06:11)
[2016-12-14] MEDS ORDERED: Gadoteridol* (CONTRAST) 279.3 MG/ML 10 ML IV ONE (06:12)
[2016-12-14] MEDS ORDERED: Ondansetron INJ* 2 MG/ML VIAL ONE ×2 (06:28)
[2016-12-14] MEDS ORDERED: Midazolam* 1 MG/ML 10 ML VIAL (10 MG) ONE ×3 (06:28)
[2016-12-14] MEDS ORDERED: Propofol* 10 MG/ML 20 ML BTL IV PUSH ONE ×2 (06:28)
[2016-12-14] MEDS ORDERED: Lidocaine 2% PF * 5 ML VIAL ONE ×2 (06:28)
[2016-12-14] MEDS ORDERED: KETAMINE HCL* 50 MG/ML 10 ML VIAL ONE ×2 (06:30)
[2016-12-14] MEDS: Famotidine IV* 10 MG/ML 2 ML (20 mg) IV ONE (06:56)
[2016-12-14 07:18] LABS: Hematocrit 44 % (42-52); Hemoglobin 14.8 g/dl (14.0-18.0); Mean Corpuscular HGB Conc 34 g/dl (31-36); Mean Corpuscular Hemoglobin 29 pg (27-31); Mean Corpuscular Volume 87 fL (80-94); Mean Platelet Volume 8 um3 (7.4-10.4); Red Blood Count 5.06 10^6/ul (4.0-5.4); Red Cell Distribution Width 14 % (10.5-15); White Blood Count 7.7 10^3/ul (3.5-10.8)
[2016-12-14 07:47] LABS: Albumin 4.4 g/dL (3.2-5.2); BUN/Creatinine Ratio 7.8 (8-20); Calcium 9.4 mg/dL (8.6-10.3); EGFR African American 162.5 (>60); EGFR Non-African American 126.3 (>60); Globulin 2.6 g/dL (2-4); Potassium 4.2 mmol/L (3.5-5.0); Total Bilirubin 1.1 mg/dL (0.2-1.0)
[2016-12-14 08:23] VITALS: BP 131/86
--- NOTE | 2016-12-14 09:17 | RAD ---
HISTORY: Epilepsy COMPARISONS: None TECHNIQUE: The following sequences were obtained of the head: Sagittal T1-weighted images, axial T2-weighted images, axial FLAIR images, axial susceptibility weighted images, axial T1-weighted images, coronal T1, T2 and FLAIR images through the mesial temporal lobes. Additionally, axial diffusion-weighted images were obtained with calculated apparent diffusion coefficients. Additionally, sagittal and axial T1 weighted images with thin section coronal T1-weighted images through the mesial temporal lobes were obtained after contrast enhancement with a gadolinium-based intravenous contrast agent. FINDINGS: HEMORRHAGE/INFARCT: There is no hemorrhage or acute infarct. MASSES/SHIFT: There is no mass or shift. EXTRA-AXIAL SPACES/MENINGES: There are no extra-axial fluid collections. SULCI AND VENTRICLES: The sulci and ventricles are normal in size and position for the patient's stated age. CEREBRUM: There is no appreciable cortical dysplasia or heterotopia. There is asymmetry in the size of the medial temporal lobes, mildly smaller on the right than on the left, with loss of the architectural definition of the right basal temporal lobe BRAINSTEM: There are no focal parenchymal abnormalities. CEREBELLUM: There are no focal parenchymal abnormalities. The cerebellar tonsils are normal in size and position. SELLA: The sella is normal. PINEAL: The pineal region is clear. CP ANGLE/TEMPORAL BONES: The labyrinthine structures are grossly normal. VESSELS: Normal flow-voids are noted within the visualized vertebral vasculature. DIFFUSION ABNORMALITIES: There are no diffusion abnormalities. PARANASAL SINUSES/MASTOIDS: The paranasal sinuses are clear. ORBITS: The orbits are unremarkable. BONES AND SOFT TISSUE: No bone or soft tissue abnormalities are noted. OTHER: There is no abnormal enhancement. 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 RECOMMEND CORRELATION WITH EEG FINDINGS.
== END 2016-12-14 09:02 | disposition home or self-care (01) ==
LOC: OR 05:54
PROVIDERS: ATTEND Psychiatry & Neurology Neurology
DX: G40.909 Epilepsy, unspecified, not intractable, without status epilepticus (principal); F84.0 Autistic disorder
CPT/HCPCS: 36415; 70553; 80053; 85025; A9270-GY; A9579; J2250; J2405; J2704

== ENCOUNTER 2017-08-08 19:26 | Emergency (ER) | payer MEDICAID ==
[2017-08-08 19:45] VITALS: BP 121/92
--- NOTE | 2017-08-08 20:44 | ED ---
Nicho Sanchez Tiffany, scribed for Bryce Perez MD on 08/08/17 at 2017 . Neurological HPI - HPI Summary HPI Summary: 21 year old M ERROL to [facility] presents s/p seizure at 18:30 today. Pt is not actively seizing upon evaluation. Hx seizure since 2011. Pt has hx autism, is non-verbal at baseline, so pt's mother delivers HPI. Pt took 150 BID Vimpat 10 minutes before seizure today. Mother states that pt's seizure was worse today than in the past. She denies recent dosage change, recent illness, fever, urinary symptoms. Pt's last seizure was in May 2017. Pt's neurologist, Dr. Izzy Manuel in [place], did not increase dosage after May 2017 seizure. Per EMS, BG 80 en route. 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, EMS Onset/Duration: Started hours ago - 18:30 today, Resolved Associated Signs and Symptoms: Positive: Negative - recent dosage change, recent illness, fever, urinary symptoms - Additional Pertinent History Primary Care Physician: [id number] - Allergy/Home Medications Allergies/Adverse Reactions: Allergies Allergy/AdvReac Type Severity Reaction Status Date / Time No Known Allergies Allergy Verified 12/14/16 06:03 PMH/Surg Hx/FS Hx/Imm Hx Previously Healthy: No Endocrine/Hematology History: Denies: Hx Diabetes Cardiovascular History: Denies: Hx Hypertension, Hx Myocardial Infarction, Hx Pacemaker/ICD History: Denies: Hx Renal Disease Sensory History: Denies: Hx Hearing Aid Neurological History: Reports: Hx Seizures - epilepsy, Other Neuro Impairments/ Disorders - non-verbal autism Psychiatric History: Reports: Hx Anxiety, Hx Autism - non-verbal, Hx of Violent Episodes Against Others - possible reaction to Keppra, Other Psychiatric Issues/ Disorders - autism Denies: Hx Panic Disorder - Surgical History Surgery Procedure, Year, and Place: pt never had surgery Hx Anesthesia Reactions: No - never had surgery Infectious Disease History: No Infectious Disease History: Denies: Traveled Outside the [place] in Last 30 Days - Family History Known Family History: Positive: Hypertension - Social History Alcohol Use: None Hx Substance Use: No Substance Use Type: Reports: None Hx Tobacco Use: No Smoking Status (MU): Never Smoked Tobacco Review of Systems Positive: Other - NEGATIVE: recent dosage change, recent illness. Negative: Fever Positive: other - NEGATIVE: urinary symptoms Neurological: Other - seizure at 18:30 today. Pt is not actively seizing upon evaluation All Other Systems Reviewed And Are Negative: Yes Physical Exam - Summary Physical Exam Summary: VITAL SIGNS: Reviewed. GENERAL: Patient is a well-developed and nourished male who is lying comfortable in the stretcher. Patient is not in any acute respiratory distress. HEAD AND FACE: No signs of trauma. No ecchymosis, hematomas or skull depressions. No sinus tenderness. EYES: PERRLA, EOMI x 2, No injected conjunctiva, no nystagmus. EARS: Hearing grossly intact. Ear canals and tympanic membranes are within normal limits. MOUTH: Oropharynx within normal limits. NECK: Supple, trachea is midline, no adenopathy, no JVD, no carotid bruit, no c- spine tenderness, neck with full ROM. CHEST: Symmetric, no tenderness at palpation LUNGS: Clear to auscultation bilaterally. No wheezing or crackles. CVS: Regular rate and rhythm, S1 and S2 present, no murmurs or gallops appreciated. ABDOMEN: Soft, non-tender. No signs of distention. No rebound no guarding, and no masses palpated. Bowel sounds are normal. EXTREMITIES: FROM in all major joints, no edema, no cyanosis or clubbing. NEURO: Alert and oriented x 3. No acute neurological deficits. Patient is non- verbal at baseline. He is alert upon evaluation. SKIN: Dry and warm Triage Information Reviewed: Yes Vital Signs On Initial Exam: Initial Vitals Temp Pulse Resp BP Pulse Ox 98.3 F 104 18 121/92 96 08/08/17 19:43 08/08/17 19:43 08/08/17 19:43 08/08/17 19:43 08/08/17 19:43 Vital Signs Reviewed: Yes Diagnostics - Vital Signs Vital Signs Temp Pulse Resp BP Pulse Ox 08/08/17 19:43 98.3 F 104 18 121/92 96 - Laboratory Lab Statement: Any lab studies that have been ordered have been reviewed, and results considered in the medical decision making process. Re-Evaluation - Re-Evaluation First Eval Re-Evaluation Time: 20:04 Change: Unchanged Comment: Updated pt and mother that pt's neurologist could not be reached. Discussed discharge plan. Agreeable to go home. Course/Dx - Course Course Of Treatment: 21 year old M ERROL to [facility] presents s/p seizure at 18:30 today. Upon exam, pt is non-verbal at baseline, has no complaints, no urinary symptoms, no respiratory symptoms. Pt's neurologist, Dr. Manuel, could not be reached because her office had no one carton filler this evening. Pt given an extra 50 Vimpat. Pt's mother agrees to discharge, will increase Vimpat dosage to 200 in the morning, then call neurology. - Diagnoses Provider Diagnoses: Recurrent seizures Discharge - Sign-Out/Discharge Documenting (check all that apply): Discharge/Admit/Transfer - Discharge Plan Condition: Stable Disposition: HOME Patient Education Materials: Recurrent Seizures in Adults (ED) Referrals: Fran Browning [Primary Care Provider] - Izzy Manuel MD [Medical Doctor] - 1 Day Additional Instructions: Increase Vimpat to 200 BID in the morning. Call your neurologist, Dr. Izzy Manuel, in the morning to follow-up with her. Return to the Emergency Department for any new or worsening symptoms. The documentation as recorded by the Nicho stafford Tiffany accurately reflects the service I personally performed and the decisions made by me, Bryce Perez MD.
== END 2017-08-08 20:36 | disposition home or self-care (01) ==
LOC: ED 19:26
DX: G40.909 Epilepsy, unspecified, not intractable, without status epilepticus (principal); F84.0 Autistic disorder
CPT/HCPCS: 99282